=== PATIENT | male | born 1990 | race African-American/Black ===

== ENCOUNTER 2016-11-06 22:01 | Emergency (ER) | payer MEDICAID ==
--- NOTE | 2016-11-06 22:16 | ED Physician Chart ---
Chief Complaint/HPI - Patient Information Date Seen:: 11/06/16 Time Seen:: 22:00 Chief Complaint:: Suicidal Ideations History of Present Illness:: onset x one day of suicidal thoughts/ideations, hallucinations, and depression; pt denies H/As, neck pain, C/P, SOB, cough, Abd. Pain, A/N/V/D/C, fever, chills , or urinary s/s Allergies:: Allergies Allergy/AdvReac Type Severity Reaction Status Date / Time haloperidol [From Haldol] Allergy Verified 11/06/16 22:08 ziprasidone [From Geodon] Allergy Verified 11/06/16 22:08 Historian:: Patient, EMS Review:: Nurse's Note Reviewed, Old Chart Reviewed, EMS run form Reviewed, Transfer documents Reviewed Review of Systems - Review of Systems General/Constitutional: Fever, Chills, No weight loss, No weakness, No diaphoresis, No edema, No loss of appetite Skin: No skin lesions, No rash, No bruising Head: No headache, No light-headedness Eyes: No loss of vision, No pain, No diplopia ENT: No earache, No nasal drainage, No sore throat, No tinnitus Neck: No neck pain, No swelling, No thyromegaly, No stiffness, No mass noted Cardio Vascular: No chest pain, No palpitations, No PND, No orthopnea, No edema Pulmonary: No SOB, No cough, No sputum, No wheezing GI: No nausea, No vomiting, No diarrhea, No pain, No melena, No hematochezia, No constipation, No hematemesis G/U: No dysuria, No frequency, No hematuria Musculoskeletal: No bone or joint pain, No back pain, No muscle pain Endocrine: No polyuria, No polydipsia Psychiatric: Prior psych history, Depression, Anxiety, Suicidal ideation, No homicidal ideation, Auditory hallucination, Visual hallucination Hematopoietic: No bruising, No lymphadenopathy Allergic/Immuno: No urticaria, No angioedema Neurological: No syncope, No focal symptoms, No weakness, No paresthesia, No headache, No seizure, No dizziness, No confusion, No vertigo Past Medical History - Past Medical History Obtainable: Yes Past Medical History: HTN Family History: HTN Social History: Smoker, Alcohol, No Drug Use, Single Surgical History: None Psychiatricy History: Schizophrenia, Bipolar Medication: Reviewed Family Medical History - Family Member Mother Ethnicity: Non- Hx Family Hypertension: Yes Physical Exam - Physical Examination General/Constitutional: Awake, Well-developed, well-nourished, Alert, No distress, GCS 15, Non-toxic appearing, Ambulatory Head: Atraumatic Eyes: Lids, conjuctiva normal, PERRL, EOMI Skin: Nl inspection, No rash, No skin lesions, No ecchymosis, Well hydrated, No lymphadenopathy ENMT: External ears, nose nl, Nasal exam nl, Lips, teeth, gums nl Neck: Nontender, Full ROM w/o pain, No JVD, No nuchal rigidity, No bruit, No mass, No stridor Respiratory: Nl effort/Exclusion, Clear to Auscultation, No Wheeze/Rhonchi/Rales Cardio Vascular: RRR, No murmur, gallop, rubs, NL S1 S2 GI: No tenderness/rebounding/guarding, No organomegaly, No hernia, Normal BS's, Nondistended, No mass/bruits, No McBurney tenderness : No CVA tenderness Extremities: No tenderness or effusion, Full ROM, normal strength in all extremities, No edema, Normal digits & nails Neuro/Psych: Alert/oriented, DTR's symmetric, Normal sensory exam, Normal motor strength, Mood normal, Normal gait, No focal deficits Other Neuro/Psych comments:: + Suicidal Ideations Misc: normal gait, Normal back, No paraspinal tenderness Labs/Radiology/EKG Results - Lab Results Comments:: UDS: + Amphetamines ED Septic Shock - . Is Septic Shock (SBP<90, OR Lactate>4 mmol\L) present?: No Reassessment (Disposition) - Reassessment Reassessment Condition:: Improved - Diagnosis Diagnosis:: Substance Abuse; Medically Clearance; BiPolar Disorder; Manic-Depression; Depression; Suicidal Ideations - Aftercare/Follow up Instructions Aftercare/Follow-Up Instructions:: Counseled pt regarding lab results/diagnosis & need follow up, Counseled pt & family regarding lab results/diagnosis & need follow up - Patient Disposition Discharge/Transfer:: PET Team Psychiatric Concult/Evaluation Condition at Disposition:: Stable, Improved (Pt to be evaluated at ER by the Psychiatric PET Team)
[2016-11-06 22:32] LABS: % BASOPHILS 0.3 % (0.0-2.0); % EOSINOPHILS 2.1 % (0.0-5.0); % LYMPHOCYTES 33.2 % (20.0-50.0); % MONOCYTES 8.5 % (2.0-10.0); % NEUTROPHILS 55.9 % (40.0-80.0); HEMATOCRIT 38.6 % (39.0-49.0); HEMOGLOBIN 12.6 gm/dL (13.2-17.3); MEAN CELL VOLUME 85.4 fl (80-99); MEAN CORPUSCULAR HEMOGLOBIN 27.9 pg (26.0-30.0); MEAN CORPUSCULAR HGB CONC 32.7 pg (28.0-36.0); MEAN PLATELET VOLUME 8.7 fl; NEUTROPHILE ABSOLUTE 5.1 Th/cmm (1.8-8.0); PLATELET COUNT 203 Th/cmm (150-400); RED BLOOD COUNT 4.52 Mil/cmm (4.30-5.70); WHITE BLOOD COUNT 9.1 Th/cmm (4.8-10.8)
[2016-11-06 22:50] LABS: ACETAMINOPHEN < 10.0 ug/mL (10.0-30.0); ALB/GLOB RATIO 1.3 (1.0-1.8); ALKALINE PHOSPHATASE 73 U/L (34-104); ANION GAP 7.8 (7.0-16.0); BILIRUBIN,TOTAL 0.2 mg/dL (0.3-1.0); BUN - UREA NITROGEN 12 mg/dL (7-25); CALCIUM SERUM 8.9 mg/dL (8.6-10.3); CARBON DIOXIDE 24.1 mEq/L (21.0-31.0); CHLORIDE 104 mEq/L (98-107); CREATININE - SERUM 0.8 mg/dL (0.7-1.3); GLUCOSE 111 mg/dL (70-105); LIPASE 20 U/L (11-82); POTASSIUM SERUM 3.9 mEq/L (3.5-5.1); SGOT 33 U/L (13-39); SGPT/ALT 44 U/L (7-52); SODIUM SERUM 132 mEq/L (136-145)
[2016-11-07 00:22] LABS: AMPHETAMINE URINE POSITIVE (NEGATIVE); BARBITURATES URINE NEGATIVE (NEGATIVE); METHADONE URINE NEGATIVE (NEGATIVE)
--- NOTE | 2016-11-07 10:18 | History & Physical ---
ADMIT DATE: 11/07/2016 REQUESTING PHYSICIAN: Ray Orellana M.D. REASON FOR CONSULTATION: Suicidal ideation. HISTORY OF PRESENT ILLNESS: This patient is a 26-year-old -[place] male, living by himself. Information was obtained directly by interviewing the patient as well as reviewing the admission papers. The patient has presented himself to the Emergency Room because of agitation and suicidal ideation. The patient is stating that he has been on Zyprexa 10 mg at bedtime for a long period of time, but has not taken the medications for week to 10 days. The patient is reporting that he has been paranoid, but denies any suicidal or homicidal ideation. The patient is stating that he needs some place to stay. PAST PSYCHIATRIC HISTORY: Details are not known. PAST MEDICAL HISTORY: As medical problems. SUBSTANCE ABUSE HISTORY: The patient has been using methamphetamine, but has been downplaying the use of any other drugs. SOCIAL HISTORY: The patient is stating that he is currently homeless. STRENGTHS AND ASSETS: The patient is motivated. MENTAL STATUS EXAMINATION: The patient is a 26-year-old, looking his stated age, cooperative. Eye contact is fair. Mood is noted to be anxious. Affect is appropriate. Not suicidal or homicidal. The patient has paranoia, but denies any command hallucinations. The patient is alert and oriented x 3. Insight and judgment noted to be fair. Impulse control is also noted fair. DIAGNOSTIC IMPRESSION: 1. Psychosis, not otherwise specified. 2. Methamphetamine abuse. PLAN: To restart the Zyprexa 10 mg and social work is going to be requested to help the patient with the placement. The patient does not need any inpatient psychiatric hospitalization at this time. JOB# [id number]
[2016-11-07 10:27] LABS: URINE BILIRUBIN NEGATIVE (NEGATIVE); URINE BLOOD NEGATIVE (NEGATIVE); URINE GLUCOSE (UA) NEGATIVE (NEGATIVE); URINE KETONE NEGATIVE (NEGATIVE); URINE PROTEIN NEGATIVE (NEGATIVE); URINE UROBILINOGEN 0.2 E.U./dL (0.2 - 1.0)
[2016-11-07 10:31] LABS: URINE COLOR YELLOW
[2016-11-07 10:49] LABS: URINE BACTERIA NONE SEEN /hpf (NONE SEEN); URINE EPITHELIAL CELLS RARE /lpf (FEW); URINE RBC NONE SEEN /hpf (0-5); URINE WBC NONE SEEN /hpf (0-5)
== END 2016-11-07 14:45 | disposition short-term general hospital (02) ==
LOC: ER 22:01
DX: R45.851 Suicidal ideations (principal); F31.9 Bipolar disorder, unspecified; F17.200 Nicotine dependence, unspecified, uncomplicated; I10 Essential (primary) hypertension; F19.10 Other psychoactive substance abuse, uncomplicated; F20.9 Schizophrenia, unspecified; Z88.8 Allergy status to other drugs, medicaments and biological substances
CPT/HCPCS: 36415-UA; 80053-TC; 80307; 80320-TC; 80329-TC; 81001-TC; 82977-90; 83690-TC; 84443-TC; 85025-TC; 86592-TC; Z7502